=== PATIENT | female | born 1975 | race Caucasian/White ===

== ENCOUNTER 2018-06-16 20:12 | Emergency (ER) | payer OTHER ==
[~2018-06-16] VITALS: Ht 165.1 cm; Wt 90.5 kg
[2018-06-16] MEDS ORDERED: LEVO150T7 PO (20:17)
[2018-06-16] MEDS ORDERED: TOPI50TA9 PO (20:18)
[2018-06-16] MEDS ORDERED: FOLI20CA PO (20:18)
[2018-06-16] MEDS ORDERED: WELLTAB40 PO (20:18)
[2018-06-16] MEDS ORDERED: METOCLOPRAMIDE INJ 10MG/2ML VIAL (J2765) IV ONE (21:15)
[2018-06-16] MEDS ORDERED: KETOROLAC 30 MG/ML VIAL (J1885) IV ONE (21:15)
[2018-06-16] MEDS ORDERED: NS 1,000 ML IV ONE (21:15)
[2018-06-16] MEDS ORDERED: diphenhydrAMINE INJ 50MG/ML VIAL (J1200) IV STA (21:15)
[2018-06-16 21:58] LABS: BASO % 0.2 % (0.0-1.0); HEMATOCRIT 40.3 % (36.0-47.0); HEMOGLOBIN 13.1 g/dl (12.0-15.5); LYMPH # 0.4 10^3/uL (1.5-4.5); LYMPH % 5.9 % (24.0-44.0); MEAN CORPUSCULAR HEMOGLOBIN 29.8 pg (27.0-33.0); MEAN CORPUSCULAR HGB CONC 32.5 g/dl (32.0-36.5); MEAN CORPUSCULAR VOLUME 91.8 fl (80.0-96.0); MONO # 0.4 10^3/uL (0.0-0.8); MONO % 5.3 % (0.0-5.0); NEUTROPHILS # 5.9 10^3/uL (1.8-7.7); NEUTROPHILS % 88.1 % (36.0-66.0); PLATELET COUNT, AUTOMATED 170 10^3/uL (150-450); RED BLOOD COUNT 4.39 10^6/uL (4.00-5.40); WHITE BLOOD COUNT 6.6 10^3/uL (4.0-10.0)
[2018-06-16 22:13] LABS: BLOOD UREA NITROGEN 7 MG/DL (7-18); CALCIUM LEVEL 7.5 MG/DL (8.5-10.1); CARBON DIOXIDE LEVEL 23 MEQ/L (21-32); CHLORIDE LEVEL 108 MEQ/L (98-107); CREATININE FOR GFR 0.67 MG/DL (0.55-1.30); GLOMERULAR FILTRATION RATE > 60.0 (>58); GLUCOSE, FASTING 105 MG/DL (70-100); POTASSIUM SERUM 3.8 MEQ/L (3.5-5.1); SODIUM LEVEL 138 MEQ/L (136-145)
[2018-06-16 22:27] LABS: INFLUENZA A AMPLIFICATION NEGATIVE (NEGATIVE); INFLUENZA B AMPLIFICATION NEGATIVE (NEGATIVE)
--- NOTE | 2018-06-16 22:49 | REPVR ---
EXAM: US Pelvis Complete, Transabdominal EXAM DATE/TIME: 06/16/2018 9:43 PM CLINICAL HISTORY: 43 years old, female; Pelvic pain; Prior surgery; Surgery date: 6+ months; Surgery type: x 2; Additional info: Pelvic pain, recently placed mirena, eval placement TECHNIQUE: Imaging protocol: Real-time transabdominal pelvic ultrasound with image documentation. Complete exam. COMPARISON: No relevant prior studies available. FINDINGS: Uterus/cervix: Anteverted uterus measuring 10.3 x 4.9 x 6.[address], in good position. Right adnexa: Right ovary measures 3.1 x 3.2 x 3.0 cm. Cyst in the right ovary measuring 3.0 x 2.6 but 2.4 cm. Normal vascular flow is seen. No evidence of torsion. Left adnexa: Left ovary is not seen. Free fluid: No free fluid. Bladder: Normal. Bowel: Peristaltic bowel loops are seen during the exam throughout the pelvis. IMPRESSION: IUD in place, in good position. Simple cyst in right ovary. No ovarian torsion. Left ovary is not seen. Peristaltic bowel loops are seen during the exam throughout the pelvis. Electronically signed by: Celeste Banegas On 06/16/2018 22:48:55 PM
[2018-06-16 22:57] VITALS: BP 110/56
== END 2018-06-16 23:09 | disposition home or self-care (01) ==
LOC: M ED 20:12
DX: B34.9 Viral infection, unspecified (principal); N83.201 Unspecified ovarian cyst, right side; R51 Headache; E03.9 Hypothyroidism, unspecified; Z97.5 Presence of (intrauterine) contraceptive device; Z79.899 Other long term (current) drug therapy; Z98.84 Bariatric surgery status; Z98.890 Other specified postprocedural states
CPT/HCPCS: 76830; 76856; 80048; 81001; 83605; 85025; 87502; 93976; 96374; 96375; 99284; J1200; J1885; J2765

== ENCOUNTER → 2020-09-25 | Outpatient (CLI) | payer OTHER ==
[~2020-09-25] MED LIST: BUPR15TA PO; DICL35CA2 PO; FOLI20CA PO; LEVO150C PO; LEVO150T7 PO; MIRE1IUD IU; PHEN-239 PO; TOPI50TA9 PO; WELLTAB40 PO; [UNRECOGNIZED DRUG - CODE] PO
--- NOTE | 2020-09-25 09:44 | REP ---
INDICATION: UPPER ABD PAIN. COMPARISON: None. TECHNIQUE: Multiple ultrasonographic images of the abdominal right upper quadrant. FINDINGS: The patient indicates she had a cholecystectomy approximately 20 years ago. There is no intrahepatic or extrahepatic biliary duct dilatation. The common biliary duct measures 4.4 mm in diameter which is normal in a post cholecystectomy patient. The pancreas is obscured by bowel gas and not visualized. The right kidney measures 11.1 x 7.6 x 6.5 cm and is normal size. There is no right renal hydronephrosis, calculus, mass or cyst. There is no right upper quadrant abdominal free fluid. IMPRESSION: Cholecystectomy. No biliary duct dilatation. Pancreas is obscured and not visualized. The right kidney is unremarkable. There is no right upper quadrant free fluid. <Electronically signed by Brando Duval > 09/25/20 [id number]
== END ==
LOC: M RAD 07:10
PROVIDERS: ATTEND Physician Assistant Medical
DX: R10.10 Upper abdominal pain, unspecified (principal)

== ENCOUNTER 2020-10-01 12:00 | Day surgery (SDC) | payer OTHER ==
[~2020-10-01] VITALS: Ht 162.6 cm; Wt 100.2 kg
[~2020-10-01 12:00] MED LIST changes: +NS 1,000 ML IV ONE
[2020-10-01] MEDS ORDERED: LIDOCAINE 2% 100MG/5ML SDV (FOR ANES.) As Ordered ONE (13:21)
[2020-10-01] MEDS ORDERED: propofoL 200 MG/20 ML VIAL As Ordered ONE ×2 (13:21→13:46)
[2020-10-01] MEDS ORDERED: fentaNYL 100 MCG/2 ML INJECTION (J3010) As Ordered ONE (13:21)
--- NOTE | 2020-10-01 14:01 | ROOR ---
Patient Name: Helena Liz Procedure Date: 10/01/2020 1:29 PM Date of : 1975 Age: 45 Room: [facility] Gender: Female Note Status: Finalized Procedure: Upper GI endoscopy Indications: Dysphagia Providers: Sami Carcamo MD Referring MD: PATRICE WEISS MD Requesting Provider: Medicines: Monitored Anesthesia Care Complications: No immediate complications. Procedure: Pre-Anesthesia Assessment: - Prior to the procedure, a History and Physical was performed, and patient medications and allergies were reviewed. The patient is competent. The risks and benefits of the procedure and the sedation options and risks were discussed with the patient. All questions were answered and informed consent was obtained. Patient identification and proposed procedure were verified by the physician, the nurse and the anesthesiologist in the procedure room. Mental Status Examination: alert and oriented. Airway Examination: normal oropharyngeal airway and neck mobility. Respiratory Examination: clear to auscultation. CV Examination: normal. Prophylactic Antibiotics: The patient does not require prophylactic antibiotics. Prior Anticoagulants: The patient has taken no previous anticoagulant or antiplatelet agents. ASA Grade Assessment: II - A patient with mild systemic disease. After reviewing the risks and benefits, the patient was deemed in satisfactory condition to undergo the procedure. The anesthesia plan was to use monitored anesthesia care (MAC). Immediately prior to administration of medications, the patient was re-assessed for adequacy to receive sedatives. The heart rate, respiratory rate, oxygen saturations, blood pressure, adequacy of pulmonary ventilation, and response to care were monitored throughout the procedure. The physical status of the patient was re-assessed after the procedure. The Endoscope was introduced through the mouth, and advanced to the second part of duodenum. The upper GI endoscopy was accomplished without difficulty. The patient tolerated the procedure well. Findings: No gross lesions were noted in the entire esophagus. There is no endoscopic evidence of stenosis or stricture in the entire esophagus. Abnormal motility was noted in the distal esophagus. The distal esophagus/lower esophageal sphincter is spastic, but gives up passage to the endoscope. Primary peristaltic waves are noted. 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 The gastrojejunal anastomosis was characterized by healthy appearing mucosa. This was traversed. The hzbqd-mi-vbjilwh limb was characterized by moderate stenosis. The jejunojejunal anastomosis was characterized by healthy appearing mucosa. The ynfjuwpq-cb-bwtabog limb was not examined as it could not be found. Normal mucosa was found in the jejunum. A TTS dilator was passed through the scope. Dilation with an 18-19-20 mm balloon dilator was performed to 20 mm in the distal esophagus. A TTS dilator was passed through the scope. Dilation with an 18-19-20 mm balloon dilator was performed to 20 mm at the stenosis noted in gastric pouch. The dilation site was examined following endoscope reinsertion and showed no bleeding, no mucosal tear and no perforation. Impression: - No gross lesions in esophagus. - Abnormal esophageal motility, suspicious for esophageal spasm. - Farshad-en-Y gastrojejunostomy with gastrojejunal anastomosis characterized by healthy appearing mucosa. - Normal mucosa was found in the jejunum. - Dilation performed in the distal esophagus. - Dilation performed at the stenosis noted in gastric pouch. - No specimens collected. Recommendation: - Patient has a contact number available for emergencies. The signs and symptoms of potential delayed complications were discussed with the patient. Return to normal activities tomorrow. Written discharge instructions were provided to the patient. - Post gastric bypass diet (small frequent meals and avoid fatty/ fried foods). - Continue present medications. - Follow an antireflux regimen. - Await pathology results. - Return to GI clinic if persistent symptoms or new symptoms. - Do an upper GI series if symptoms persist. - Return to primary care physician. - Telephone GI clinic for pathology results in 2 weeks. 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 All rights reserved. The codes documented in this report are preliminary and upon cosmetic assembler review may be revised to meet current compliance requirements. Sami Carcamo MD Sami Carcamo MD 10/01/2020 2:00:56 PM Electronically signed by Sami Carcamo MD Number of Addenda: 0 Note Initiated On: 10/01/2020 1:29 PM Estimated Blood Loss: Estimated blood loss: none.
[2020-10-01 14:10] VITALS: BP 124/79
== END 2020-10-01 14:28 | disposition home or self-care (01) ==
LOC: M OPP 12:00
PROVIDERS: ATTEND Internal Medicine Gastroenterology
DX: K22.4 Dyskinesia of esophagus (principal); Z98.0 Intestinal bypass and anastomosis status; R13.10 Dysphagia, unspecified; Z79.899 Other long term (current) drug therapy; Z86.711 Personal history of pulmonary embolism; R12 Heartburn
CPT/HCPCS: 43239; 43245; 88305; J3010

== ENCOUNTER → 2020-12-30 | Outpatient (CLI) | payer OTHER ==
[~2020-12-30] MED LIST changes: +E-Z-GAS II EFFERVESCENT PACKET (SODIUM BICARB./CITRIC ACID/SIMETHICONE) As Ordered ONE; +E-Z-HD 98% w/w 340GM SUSP BTL As Ordered ONE; +E-Z-PAQUE 96% w/w SUSP 176GM BTL As Ordered ONE; -NS 1,000 ML IV ONE
--- NOTE | 2020-12-30 17:22 | REP ---
INDICATION: R13.10DYSPHAGIA R10.10 UPPER ABD PAIN. COMPARISON: None. TECHNIQUE: The procedure was performed under the direct supervision of Dr. Rojas. The images were reviewed with Dr. Rojas. Liquid barium was given in the erect position as well as liquid barium in the prone oblique position in order to perform a single contrast upper GI examination. Additionally liquid barium was given at the end of the examination in order to perform a small bowel follow through. A combination od fluoroscopy, spot films and last image hold technology was utilized, 1.9 minutes of fluoro time was utilized for this procedure. FINDINGS: The concrete placement equipment operator film shows no organomegaly or pathological masses. The intestinal gas pattern is non-specific. There are surgical clips noted in the right upper quadrant and epigastric region. There is an IUD in place. The oral and pharyngeal stages of deglutition are unremarkable. During esophageal transport are tertiary waves demonstrated. There is no esophagitis, stricture, mucosal ring or hiatal hernia. Gastroesophageal reflux is not demonstrated on this examination The patient is status post gastric bypass. Contrast passes through the anastomosis without delay. There is no evidence of gastritis neoplasm or ulcer disease. The visualized portion of the proximal small bowel appears normal in course and caliber. The barium column was followed through the small bowel to the level of the terminal ileum. Small bowel transit time is approximately 2 hours and 30 minutes. During fluoroscopy gentle palpation shows all loops are freely movable and pliable. There are no fixed or angulated loops. The small bowel mucosal pattern is normal in course and caliber. There is no transition to suggest a partial small-bowel obstruction. Spot filming of the terminal ileum shows it to be unremarkable. IMPRESSION: There are tertiary waves demonstrated. Patient is status post gastric bypass. <Electronically signed by Mo Larsen > 12/30/20 1631 <Electronically signed by Brando Rojas > 12/30/20 [id number]
== END ==
LOC: M RAD 10:19
PROVIDERS: ATTEND Physician Assistant Medical
DX: R13.10 Dysphagia, unspecified (principal); K22.4 Dyskinesia of esophagus; R10.10 Upper abdominal pain, unspecified; Z98.84 Bariatric surgery status

== ENCOUNTER → 2021-09-08 | Outpatient (CLI) | payer OTHER ==
[~2021-09-08] MED LIST changes: -E-Z-GAS II EFFERVESCENT PACKET (SODIUM BICARB./CITRIC ACID/SIMETHICONE) As Ordered ONE; -E-Z-HD 98% w/w 340GM SUSP BTL As Ordered ONE; -E-Z-PAQUE 96% w/w SUSP 176GM BTL As Ordered ONE
== END ==
LOC: M LABSMTC 11:39
PROVIDERS: ATTEND Internal Medicine Gastroenterology
DX: Z20.822 Contact with and (suspected) exposure to COVID-19 (principal)

== ENCOUNTER → 2021-09-16 | Outpatient (CLI) | payer OTHER ==
[~2021-09-16] MED LIST changes: +GASTROGRAFIN SOLUTION 30ML (Q9963) As Ordered ONE; +ISOVUE-370 76% 100ML VIAL As Ordered ONE
== END ==
LOC: M RAD 13:32
PROVIDERS: ATTEND Physician Assistant Medical
DX: R10.11 Right upper quadrant pain (principal)

== ENCOUNTER → 2021-12-08 | Outpatient (CLI) | payer OTHER ==
[~2021-12-08] MED LIST changes: -GASTROGRAFIN SOLUTION 30ML (Q9963) As Ordered ONE; -ISOVUE-370 76% 100ML VIAL As Ordered ONE
== END ==
LOC: M LABSMTC 11:22
PROVIDERS: ATTEND Internal Medicine Gastroenterology
DX: Z11.52 Encounter for screening for COVID-19 (principal)

== ENCOUNTER 2025-01-20 14:54 | Emergency (ER) | payer OTHER ==
[~2025-01-20] VITALS: Ht 165.1 cm; Wt 80.6 kg
[~2025-01-20 14:54] MED LIST changes: -LEVO150C PO; +LEVO150C2 PO; -PHEN-239 PO; +PHEN37.511 PO; +TOPI-21 PO; -TOPI50TA9 PO
[2025-01-20 16:21] LABS: BASO # 0.0 10^3/uL (0.0-0.2); BASO % 0.2 % (0.0-1.0); EOS # 0.2 10^3/uL (0.0-0.5); EOS % 3.1 % (0.0-3.0); LYMPH # 1.5 10^3/uL (1.5-5.0); LYMPH % 30.1 % (24.0-44.0); MONO # 0.4 10^3/uL (0.0-0.8); MONO % 9.0 % (2.0-8.0); NEUTROPHILS # 2.8 10^3/uL (1.5-8.5); NEUTROPHILS % 57.4 % (36.0-66.0); PLATELET COUNT, AUTOMATED 256 10^3/uL (150-450)
[2025-01-20 16:50] LABS: ALT/SGPT 27 U/L (7.0-40); AST/SGOT 28 U/L (<34); CALCIUM LEVEL 7.3 MG/DL (8.5-10.1); CARBON DIOXIDE LEVEL 28 MMOL/L (20-31); CHLORIDE LEVEL 106 MMOL/L (98-107); CK-MB VALUE MASS < 1.0 NG/ML (<3.6); CREATININE FOR GFR 0.69 MG/DL (0.55-1.30); GLOMERULAR FILTRATION RATE > 90.0 (>58); POTASSIUM SERUM 4.4 MMOL/L (3.5-5.1); SODIUM LEVEL 142 MMOL/L (136-145)
[2025-01-20 17:02] LABS: CPK CREATINE PHOSPHOKINASE 44 U/L (34-145)
[2025-01-20] MEDS ORDERED: ISOVUE-370 76% 100 ML VIAL As Ordered ONE (17:07)
[2025-01-20 17:45] LABS: CK-MB VALUE MASS < 1.0 NG/ML (<3.6); CPK CREATINE PHOSPHOKINASE 43 U/L (34-145)
[2025-01-20 18:30] VITALS: BP 102/60; TEMP 100.4; O2SAT 98
== END 2025-01-20 18:48 | disposition home or self-care (01) ==
LOC: M ED 14:54
DX: R07.81 Pleurodynia (principal); E03.9 Hypothyroidism, unspecified; Z79.890 Hormone replacement therapy; Z79.3 Long term (current) use of hormonal contraceptives; Z79.899 Other long term (current) drug therapy
CPT/HCPCS: 36415; 71045; 71275; 80048; 80076; 82550; 82553; 83690; 84443; 84484; 85025; 93005; 93041; 94760; 99285; Q9967